=== PATIENT | female | born 1940 | race Caucasian/White ===

== ENCOUNTER → 2016-12-05 16:28 | Outpatient (CLI) | payer MEDICARE, BC | END | disposition home or self-care (01) | LOC: D.MAMMO 14:30 | DX: Z12.31 Encounter for screening mammogram for malignant neoplasm of breast (principal) ==

== ENCOUNTER → 2017-04-25 09:48 | Outpatient (CLI) | payer MEDICARE, BC | END | disposition home or self-care (01) | LOC: D.MRI 04-24 10:00 | DX: M25.561 Pain in right knee (principal) ==

== ENCOUNTER 2017-09-05 06:12 | Day surgery (SDC) | payer MEDICARE, BC ==
[2017-09-03 10:22] LABS: HEMATOCRIT 41.9 % (36.0-48.0); MCH 30.4 pg (26.0-34.0); MCHC 33.4 g/dL (31.0-37.0); MCV 91.1 fL (80.0-100.0); RBC 4.6 10x6/uL (4.00-5.40); RDW 11.9 % (11.5-14.5); WBC 5.6 10x3/uL (4.8-10.8)
[2017-09-03 10:24] LABS: ANION GAP 13.9 mmol/L (8-16); CALCIUM 9.6 mg/dL (8.5-10.1); CARBON DIOXIDE 26.2 mmol/L (21.0-32.0); POTASSIUM - SERUM 4.1 mmol/L (3.5-5.1)
[~2017-09-05] VITALS: Ht 157.5 cm; Wt 84.6 kg
--- NOTE | ~2017-09-05 | OP ---
PATIENT NAME: DON LOVING MEDICAL RECORD: [id number] :41 LOCATION:[facility] ADMISSION DATE: SURGEON: BRANDAN SERNA MD DATE OF OPERATION: 09/05/2017 SURGEON: Brandan Serna MD KNITTING SUPERVISOR: General anesthesia by Jasvir Ching CRNA. PREOPERATIVE DIAGNOSES: Female stress urinary incontinence, midline cystocele grade III ([place]-Walker scale), rectocele grade II with enterocele, status post hysterectomy. PROCEDURES: Cystoscopy, pubovaginal sling with bovine fascia of Xenform 2 x 7 cm graft, cystocele repair using bovine fascia Xenform 6 x 12 cm graft placed (cut from an 8 x 12 cm sheet), rectocele repair by levator ani plication. SPECIMEN: Posterior vaginal wall. ESTIMATED BLOOD LOSS: 200 mL. COMPLICATIONS: None. FINDINGS: Cystocele grade III, rectocele grade II, enterocele grade II ([place]-Walker scale). On cystoscopy, single ureteral orifices bilaterally. No bladder tumors. Bladder inflammation noted. CLINICAL HISTORY: This is a 77-year-old female, A0, who is post-hysterectomy. She has noticed complete pelvic prolapse as well as stress urinary incontinence. When she was examined, stress urinary incontinence was evident upon reduction of the cystocele manually. She is very afraid of use of mesh in pelvic floor reconstruction. She requested that only biological tissues be used in her reconstruction. We are therefore using [employer] Xenform, which is derived from bovine sources. She is planning to have a pubovaginal sling, cystocele repair, and rectocele repair. This will all be done from a vaginal approach. She is aware that there may still be a residual apical enterocele, which may require an abdominal sacral colpopexy at a future date. She is allergic to AMPICILLIN, SULFA, and ADHESIVE TAPE. She was given Levaquin 500 mg IV accounting policy consultant to the OR. DESCRIPTION OF PROCEDURE: The patient was given induction of general anesthesia. She was then placed into dorsal lithotomy position and shaved, prepped and draped. A 16-Slovenian Smart catheter was placed into the bladder. I noted that the urine looked rather cloudy as if she might have a urinary tract infection. However, as we are placing in a biological graft with very low risk of infection, I decided that we could proceed. A weighted speculum was placed to hold down the posterior vaginal wall. Then, #2 nylon sutures were placed as stay sutures to retract the labia majora laterally. These are anchored to the medial thighs. On the anterior vaginal wall, the hydrodissection was performed by infiltrating the area with Pitressin solution. Twenty units of vasopressin were dissolved in 100 cc of injectable saline. This was placed using a 20-gauge syringe for hydrodissection. A transverse incision was marked out on the anterior vaginal wall. This was placed at the level of the bladder neck. A small midline T for about 1 cm was also added to assist with our dissection. The incision was made using a 15 blade. Tenotomy scissors were used around the OPERATIVE REPORT [id number] DON LOVING incision to raise the vaginal mucosal flaps. Once the flaps were underway, we used Metzenbaum scissors to complete the dissection. Anteriorly, we entered the retropubic space by perforating through the endopelvic fascia. Laterally, we penetrated through the pubocervical fascia. We were able to palpate the obturator membrane on either side. Once the dissection was complete, we had a clear space from the retropubic area all the way posteriorly into the presacral space. I could palpate the ischial spine. At this point, we placed our 4 suspensory sutures of 0 Prolene using a [employer] suture truck driver helper. The 2 posterior sutures went through the sacrospinous ligaments. They were placed 1 cm medial to the ischial spine. The placement medial was to avoid the internal pudendal arteries as well as the pudendal nerves. The anterior set of sutures was placed on Tim's ligament on each side. Therefore, we would have a 4-point suspension. The distance from the bladder neck to the apex of the dissection was measured at 6 cm using a tape measure. This distance between ischial spines was measured at 12 cm. Our graft is 8 x 12 cm. This was hydrated using saline and gentamicin solution for at least 5 minutes. We then trimmed the graft to shape. An arch was placed posteriorly to prevent the graft from constricting the rectum and causing problems with defecation. The 4 suspensory sutures were then placed through the respective corners of their graft. For the pubovaginal sling, a 1 inch long incision was made in the suprapubic region transversely. We then dissected bluntly down to the rectus fascia. Stamey needles were passed on each side down in the retropubic area where an intercepting finger guided the tip of the needle down to the vaginal dissection space. Once this was done, the Smart catheter was removed and we performed cystoscopy. A 17-Slovenian cystoscope with 30-degree lens was used for visualization. The bladder looked rather inflamed consistent with possible cystitis. No bladder tumors were seen. No bladder injury was noted. The bladder was filled through the cystoscope with normal saline. The 2 x 7 cm Xenform graft was used for the pubovaginal sling. Then, 0 Prolene was placed in helical fashion on either end and then these two 0 Prolene sutures were placed through their respective needle holes in the Stamey needles. The Stamey needles were then brought back up through the rectus fascial incision to bring the sutures in retropubic fashion. The pubovaginal sling was then brought gently up to the midpoint of the urethra and we made sure that the graft lay completely flat. We could then exert suprapubic pressure and see leakage of the saline from the urethra. We gently increased the traction on the pubovaginal sling suspensory sutures until no further leakage with suprapubic pressure was observed. At this point, a Yamila clamp was placed between the graft and the urethra to prevent excessive tensioning from tightening of the suspensory sutures. The suspensory sutures were tied to each other in the suprapubic region and then cut shorter. The suprapubic wound was irrigated out using saline and zaira were used to close the suprapubic incision. In the vaginal dissection space, we finally tied down the cystocele suspensory sutures. The posterior set were tied down and then we also placed a 2-0 Vicryl suture in the posterior midline to prevent migration of the cystocele repair graft while we were tying down the sutures. Finally, the anterior set were tied down. We had excellent reduction of the cystocele with the graft laying completely flat against the undersurface of the bladder. The wound was irrigated out with normal saline and gentamicin solution. The vaginal mucosa was closed using running 4-0 Monocryl. At this point, we addressed the rectocele. The weighted speculum was removed. The hydrodissection with Pitressin solution was again performed on the posterior OPERATIVE REPORT [id number] DON LOVING vaginal wall in the plane between the vaginal mucosa and the rectum. A dyana shaped incision was marked out in the posterior vaginal wall and the incision was made using a 15 blade. Metzenbaum scissors were used to remove the section of Dyana that was overlying the rectum. This tissue was sent to pathology for identification. We then dissected laterally and anteriorly and proximally under the vaginal mucosa. Laterally, we identified the levator ani muscles on either side. Anteriorly, we made sure that the posterior vaginal wall was freed from the anterior surface of the rectum. We then used Capio sutures with 0 Prolene as the suture material. Horizontal mattress sutures were placed into the levator ani muscle on one side and extending to the levator ani muscle the other side. These sutures were then tied down and they brought the muscles over the rectum for reduction of the rectocele. Three such sets of sutures were placed. The wound was then irrigated out with saline and gentamicin solution. The posterior vaginal wall was closed using running 4-0 Monocryl. We did a straight in and out catheterization of the bladder to be sure that it was empty. The patient will be going without a Smart catheter. Vaginal packing consisting of Kerlix infiltrated with Premarin cream was placed in the vagina. She will be having this removed later today. It is uncertain whether she would like to stay overnight or go home today. We will leave that choice to her. The patient was brought to the recovery room. I have given her a prescription for [place] 5/325 times 30 tablets as well as Levaquin 500 mg p.o. once a day for 3 days in case she has cystitis. TRANSINT:[id number] Voice Confirmation ID: [id number] DOCUMENT ID: [id number] BRANDAN SERNA MD at 1533 CC: [id number] DICTATION DATE: 09/05/17 1300 BOILERMAKER HELPER: 09/05/17 1335 REG [facility] [address] [place] [address]
[~2017-09-05 06:12] MED LIST: HYZAAR 50-12.51 TAB PO; LEVOTHYROXINE50 MCG PO
[2017-09-05 06:17] VITALS: BP 120/79; BMI 34.4
[2017-09-05] MEDS ORDERED: LEVAQUIN500 MG PO (13:48)
[2017-09-05] MEDS ORDERED: HYDROCODON-ACE1 EAC7 PO (13:49)
[2017-09-05 23:26] VITALS: Ht 157.5 cm; Wt 84.6 kg
[2017-09-06 06:06] VITALS: BP 108/45
[2017-09-06 08:02] VITALS: BP 113/57
== END 2017-09-06 16:00 | disposition home or self-care (01) ==
LOC: D.OPS 06:12 → D.PAN 09:05 → D.OPS 11:15 → D.PAN 11:15 → D.M2 19:19 → D.OPS 09-06 16:00
PROVIDERS: Anesthesiology
DX: N39.3 Stress incontinence (female) (male) (principal); N81.11 Cystocele, midline; N81.6 Rectocele; N99.3 Prolapse of vaginal vault after hysterectomy; R39.198 Other difficulties with micturition; N99.89 Other postprocedural complications and disorders of genitourinary system; Z01.812 Encounter for preprocedural laboratory examination

== ENCOUNTER 2018-01-02 06:40 | Inpatient (IN) | payer MEDICARE, BC ==
[2018-01-01 13:35] LABS: HEMATOCRIT 42.5 % (36.0-48.0); HEMOGLOBIN 14.3 g/dL (12-16); MCH 30.6 pg (26.0-34.0); MCHC 33.6 g/dL (31.0-37.0); MCV 90.8 fL (80.0-100.0); MEAN PLATELET VOLUME 9.2 fL (7.4-10.4); RBC 4.68 10x6/uL (4.00-5.40); RDW 13.3 % (11.5-14.5); WBC 5.9 10x3/uL (4.8-10.8)
[2018-01-01 14:27] LABS: ANION GAP 15.2 mmol/L (8-16); CALCIUM 9.9 mg/dL (8.5-10.1); CARBON DIOXIDE 25.8 mmol/L (21.0-32.0)
[~2018-01-02] VITALS: Ht 157.5 cm; Wt 84.5 kg
--- NOTE | ~2018-01-02 | OP ---
PATIENT NAME: DON LOVING MEDICAL RECORD: [id number] :41 LOCATION:[id number] ADMISSION DATE:01/02/18 SURGEON: BRANDAN RUFFIN MD DATE OF OPERATION: 01/02/2018 This is a co-surgeon case. I performed this with Dr. Serna. He was the urologist. I was the general surgeon. Due to the complexity of this operative procedure, it was necessary to have 2 attending surgeons during the operation. We performed an exploratory laparotomy, an adhesiolysis, and an abdominal sacrocolpopexy using the [employer] polypropylene mesh. My involvement in the operation included scrubbing in as the anterior fascia was being incised. I incised half of the anterior fascia. I performed the creation of subfascial flaps in cephalad and caudad direction. I the rectus muscles in the midline. Dr. Serna and I both pulled on the rectus muscles laterally in order to provide more space. We were able to feel the Smart catheter within the bladder. We avoided the bladder by incising the peritoneum cephalad. Utilizing handheld Torrez retractors, a sharp adhesiolysis was undertaken. It took 5 minutes for this sharp adhesiolysis. An Patrick retractor was placed. We then placed a Bookwalter retractor, which provided cephalad retraction of the bowels out of the operative field. An EEA anvil was advanced into the vagina and we could visualize this through the operative wound, which was a Pfannenstiel incision. We incised the top of right apex of the vagina. We incised the tissue over the sacral promontory. We performed some dissection down on to the sacral promontory and incised the retroperitoneum towards the vagina. Some retroperitoneal flaps were created sharply. We cleaned the sacral promontory off. We then brought the Y-shaped mesh onto the sterile field. It was measured. It was cut. I performed suture fixation at the posterior aspect of the mesh to the vagina on my side with a Capio device and Dr. Serna performed fixation on his side. We then performed the anterior fixation of the Y-shaped mesh. The tail of the Y-shaped mesh was measured and then cut. It was sutured to the sacral promontory with a tack fixation device. We then reperitonealized a good portion of the mesh in the retroperitoneum in order to prevent the bowel from sticking to the mesh. Once this was done, we ensured that there was no bleeding. The retractors were removed. I ran most of the small bowel. I identified no evidence of retractor injury. I then laid the omentum over the small bowel. The rectus muscles were approximated in the midline with multiple interrupted horizontal mattress #[address] Serna closed his side of the anterior fascia with running looped #1 PDS and I did my side. Freddie were used for the cutaneous closure. Essentially, during the operation, Dr. Serna performed his side of the operation and I performed my side of the operation. TRANSINT:[id number] Voice Confirmation ID: [id number] DOCUMENT ID: [id number] OPERATIVE REPORT [id number] DON LOVING, BRANDAN SALES at 1227 CC: BRANDAN SERNA MD [id number] DICTATION DATE: 01/02/181818 DIRECTOR FIELD SERVICES: 01/02/182021 DIS IN 01/04/[address] [facility] [address] [place] [address]
--- NOTE | ~2018-01-02 | OP ---
PATIENT NAME: DON LOVING MEDICAL RECORD: [id number] :41 LOCATION:[id number] ADMISSION DATE:01/02/18 SURGEON: BRANDAN SERNA MD DATE OF OPERATION: 01/02/2018 COSURGEON: Brandan Serna MD and Brandan Dotson MD ANESTHESIA: General anesthesia. ANESTHESIOLOGIST: Rosina Elmore CRNA DIAGNOSIS: Enterocele, [place]-Walker grade III. PROCEDURES: Exploratory laparotomy, lysis of adhesions, abdominal sacrocolpopexy using [employer] Upsylon Y polypropylene mesh. BLOOD LOSS: None. CLINICAL HISTORY: This is a 77-year-old female who had an abdominal hysterectomy in 1972. Subsequently, she developed stress urinary incontinence, midline cystocele, grade III on the [place]-Walker scale and rectocele grade II on [place]-Walker scale. She had in August this repair with a pubovaginal sling, cystocele repair using bovine fascia and rectocele repair using levator ani plication. At that time, she did not want to have any mesh in the pelvic prolapse repair and we used all bovine fascia in her repair. When I saw her in the office a month or so afterwards, she was complaining about a bulge coming out of the vagina again. On examination, her repairs were still intact and in place. There was a large enterocele, which had developed and now was grade III on the [place]-Walker scale. This bulge is highly irritating to her and she would like to have it corrected. This would require an abdominal sacrocolpopexy. Literature has shown that abdominal sacrocolpopexy performed with the polypropylene mesh graft has much greater longevity than an abdominal sacrocolpopexy performed with the fascial graft. She was agreeable to use the mesh graft. She is aware of the risk of mesh including erosions into other organs, infection, adhesions developing from the bowel onto the mesh. She had a bowel prep yesterday and she comes today to have the surgery done. SHE IS ALLERGIC TO ADHESIVE TAPE, AMPICILLIN AND SULFA. Because of the potential for significant adhesions in the abdomen and pelvis from her previous surgery, I asked Dr. Dotson to perform this procedure with me. He was gracious enough to do so. DESCRIPTION OF PROCEDURE: The patient was given induction of general anesthesia in supine position. She had Levaquin IV given preoperatively. She was then placed in the dorsal lithotomy position in the [facility]. She was then shaved, prepped and draped. A 16-Latvian Smart catheter was put into the bladder and put to bag drainage. The patient has a Pfannenstiel incision from her abdominal hysterectomy. This incision was reopened. We then cut transversely through the rectus fascia and then split the median rhaphe of the rectus muscles vertically. We then entered into the peritoneum. A few adhesions were seen and these were taken down by Dr. Dotson. We were then able to put the Patrick retractor into the wound. We made sure that the bowels were not trapped in the rings of the Patrick. The patient was then put in Trendelenburg. We were then able to use the Bookwalter ring to hold padded retractors. These were used to hold the bowel back. We could palpate the sacral promontory. Finally, an EEA sizer was placed into the vagina and an assistant accounting manager was able to push this to OPERATIVE REPORT [id number] DON LOVING manipulate the enterocele and vaginal vault apex as we needed. The peritoneum overlying the sacral promontory was incised vertically and divided using Bovie in order to allow us to retroperitonealize the mesh in the future. I attempted to strip the peritoneum off of the vaginal vault, but it was too densely adherent. We then introduced the Upsylon Y mesh. While placing it over the vaginal apex, we were able to determine the length of mesh that was required for both the anterior and the posterior arms of the graft. These were cut to length. Then, on the posterior surface, we put 3 anchoring sutures of 2-0 Prolene. These were placed using the Capio suture four horse hitch driver. These were placed in the respective areas on the posterior graft arm of the mesh and tied down to facilitate the repair of the posterior portion of the enterocele. On the anterior portion of the enterocele, again 3 tacking sutures were placed using 2-0 Prolene using the Capio suture four horse hitch driver. These were all tied down and this finished the repair of the anterior and posterior vaginal vault suspension. We now measured the length of the Upsylon mesh that was required to reach the sacral promontory. The EEA sizer was backed out a little bit, so that not so much tension would be put on the vaginal vault. The length of the mesh was cut to the correct dimension. We then put 4 tacking sutures into the periosteum of the sacral promontory through the mesh. This resulted in complete anchorage of the vaginal vault to the sacral promontory through the Upsylon mesh. We then extraperitonealized the mesh by reapproximating the peritoneum over the mesh using simple interrupted 4-0 Vicryl. At the end of the procedure, we washed out the area with saline irrigation. We then reapproximated the rectus muscles with horizontal mattress sutures of 2-0 Vicryl. The rectus fascia was reapproximated using running 0 looped PDS. We started from each end and then tied together the 2 sutures in the midline. The skin was closed with zaira. A dressing was applied. Anesthesia prior to starting the case had also given her a TAP for postoperative pain control. The patient was awakened and she will be brought to the recovery room and thereafter be admitted to the hospital. TRANSINT:[id number] Voice Confirmation ID: [id number] DOCUMENT ID: [id number] BRANDAN SERNA MD at 0744 CC: [id number] DICTATION DATE: 01/02/18 1209 BOX SEALING MACHINE FEEDER: 01/02/18 1320 ADM IN [place] [id number] [place] [address]
[~2018-01-02 06:40] MED LIST changes: +CALCIUM 600 +1 EAC3 PO; +EZFE 200200 MG PO; +HYDROCODON-ACE1 EAC7 PO; +LEVAQUIN500 MG PO; +MULTIPLE VITAMI1 TA1 PO
[2018-01-02 07:22] VITALS: BP 104/68; BMI 35.0
[2018-01-02 13:30] VITALS: BP 133/66
[2018-01-02 14:08] VITALS: BP 125/68; Ht 157.5 cm; Wt 84.5 kg
[2018-01-02 16:25] VITALS: BP 116/70
[2018-01-02 20:48] VITALS: BP 119/63
[2018-01-03 04:45] VITALS: BP 122/66
[2018-01-03 08:04] VITALS: BP 107/42
[2018-01-03 11:08] VITALS: BP 108/54
[2018-01-03 15:41] VITALS: BP 140/62
[2018-01-03 20:27] VITALS: BP 116/45
[2018-01-03 23:35] VITALS: BP 115/48
[2018-01-04 04:27] VITALS: BP 141/75
[2018-01-04 08:10] VITALS: BP 133/64
[2018-01-04 12:12] VITALS: BP 124/61
[2018-01-04] MEDS ORDERED: HYDROCODON-ACE1 EAC6 PO (14:14)
== END 2018-01-04 15:31 | disposition home or self-care (01) | DRG 748 ==
LOC: D.MS 06:40 → D.SDCHOLD 06:40 → D.PAN 09:00 → D.OPS 09:00 → D.SDCHOLD 09:00 → EDSTATUS 09:00 → D.PAN 10:00 → D.OPS 10:15 → D.SDCHOLD 10:15 → D.PAN 10:15 → D.MS 12:53
PROVIDERS: Anesthesiology; Urology
PROC: 0USG0ZZ Reposition Vagina, Open Approach (ICD-10-PCS; principal; 2018-01-02 08:45)
DX: N81.5 Vaginal enterocele (principal); N39.3 Stress incontinence (female) (male)

== ENCOUNTER → 2018-06-12 18:27 | Outpatient (CLI) | payer MEDICARE, BC ==
[2018-01-02 14:08] VITALS: BMI 34.1
[~2018-06-12 18:27] MED LIST changes: +HYDROCODON-ACE1 EAC6 PO
== END | disposition home or self-care (01) ==
LOC: D.MAMMO 13:15
DX: Z12.31 Encounter for screening mammogram for malignant neoplasm of breast (principal)

== ENCOUNTER 2019-08-15 08:00 | Outpatient (CLI) | payer MEDICARE, OTHER ==
[2018-01-02 14:08] VITALS: BMI 34.1
== END 2019-08-15 23:59 | disposition home or self-care (01) ==
LOC: D.MAMMO 08:00
PROVIDERS: ATTEND Emergency Medicine
DX: Z12.31 Encounter for screening mammogram for malignant neoplasm of breast (principal)

== ENCOUNTER 2020-12-22 16:45 | Outpatient (CLI) | payer MEDICARE, OTHER ==
[2018-01-02 14:08] VITALS: BMI 34.1
== END 2020-12-22 23:59 | disposition home or self-care (01) ==
LOC: D.MAMMO 16:45
PROVIDERS: ATTEND Emergency Medicine
DX: Z12.31 Encounter for screening mammogram for malignant neoplasm of breast (principal)